=== PATIENT | male | born 1955 | race Asian ===

== ENCOUNTER 2023-10-14 02:41 | Inpatient (IN) | payer MEDICARE, OTHER ==
[2023-10-14] VITALS (8 sets, daily range): BP systolic 109–122; BP diastolic 48–75; TEMP 97.6–97.8; O2SAT 95–99
[~2023-10-14] VITALS: Ht 160 cm; Wt 74.8 kg
[2023-10-14] MEDS ORDERED: TDAP [DIPH/PERTUSSIS/TET] 0.5 ML VIAL IM ONE (03:07)
[2023-10-14] MEDS: TDAP [DIPH/PERTUSSIS/TET] 0.5 ML VIAL IM ONE (03:10)
[2023-10-14 03:36] LABS: BASOPHILS # (AUTO) 0.1 K/uL (0.0-0.2); BASOPHILS % (AUTO) 0.4 % (0.0-2.0); EOSINOPHILS # (AUTO) 0.4 K/uL (0.0-0.7); EOSINOPHILS % (AUTO) 2.6 % (0.0-6.0); HEMATOCRIT 42 % (39-51); HEMOGLOBIN 13.6 g/dL (13.5-17.5); LYMPHOCYTES # (AUTO) 2.4 K/uL (0.8-4.8); LYMPHOCYTES % (AUTO) 16.8 % (20.0-44.0); MEAN CORPUSCULAR HEMOGLOBIN 30 PG (26.0-33.0); MEAN CORPUSCULAR HGB CONC 33 g/dl (31.0-36.0); MEAN CORPUSCULAR VOLUME 93 fL (80-96); MONOCYTES # (AUTO) 0.9 K/uL (0.1-1.30); MONOCYTES % (AUTO) 6.6 % (2.0-12.0); NEUTROPHILS # (AUTO) 10.4 K/uL (1.8-8.9); NEUTROPHILS % (AUTO) 73.6 % (43.0-81.0); PLATELET COUNT (AUTO) 204 K/uL (150-450); RED BLOOD CELL COUNT(AUTO) 4.46 MIL/uL (4.5-6.0); WHITE BLOOD COUNT (AUTO) 14.1 K/uL (4.3-11.0)
[2023-10-14 04:01] LABS: ALBUMIN 3.4 g/dL (3.4-5.0); BILIRUBIN,TOTAL 0.2 mg/dL (0.2-1.0); CALCIUM, SERUM 8.7 mg/dL (8.5-10.1); CREATININE 1.2 mg/dL (0.6-1.3); POTASSIUM 4.6 mmol/L (3.5-5.1); TOTAL PROTEIN, SERUM 7.3 g/dL (6.4-8.2)
[2023-10-14] MEDS: LIDOCAINE /MPF 1% VIAL 5 ML VIAL IJ ONE (04:38)
[2023-10-14] MEDS ORDERED: LIDOCAINE 1% INJ 50 ML MDV IJ ONE (05:09)
[2023-10-14] MEDS ORDERED: LEVETIRACETAM (500MG) 500 MG/5 ML VIAL IV ONE (05:41)
[2023-10-14] MEDS: LEVETIRACETAM (500MG) 1,000 MG in IV NS 0.9% 90 ML IV SCH ×2 (05:48→19:18)
[2023-10-14] MEDS ORDERED: BLOOD SUGAR DIAGNOSTIC 1 EACH STRIP IN SCH ×2 (07:30→12:00)
[2023-10-14] MEDS: SENNOSIDES/DOCUSATE SODIUM 1 TAB TABLET PO SCH (10:00)
[2023-10-14] MEDS ORDERED: DEXTROSE 50%-WATER 50 ML DISP.SYRIN IV PRN (10:00)
[2023-10-14] MEDS: DOCUSATE SODIUM 100 MG CAPSULE PO SCH (10:00)
[2023-10-14] MEDS: PANTOPRAZOLE 40 MG VIAL IV SCH (10:00)
[2023-10-14] MEDS ORDERED: SENNOSIDES 8.6 MG TABLET ONE (10:45)
[2023-10-14] MEDS ORDERED: DOCUSATE SODIUM 100 MG CAPSULE PO ONE (10:46)
[2023-10-14] MEDS ORDERED: PANTOPRAZOLE 40 MG VIAL ONE (10:46)
[2023-10-14] MEDS ORDERED: PENT400T17 PO (10:55)
[2023-10-14] MEDS ORDERED: ATOR40TA PO (10:55)
[2023-10-14] MEDS ORDERED: SENN-261 PO (10:55)
[2023-10-14] MEDS ORDERED: GLIP5TAB13 PO (10:55)
[2023-10-14] MEDS ORDERED: METF-867 PO (10:55)
[2023-10-14] MEDS ORDERED: LEVO25TA9 PO (10:55)
[2023-10-14] MEDS ORDERED: ASPI-1420 PO (10:55)
[2023-10-14] MEDS ORDERED: LISI-768 PO (10:55)
[2023-10-14] MEDS ORDERED: RISP3TAB PO (10:55)
[2023-10-14] MEDS ORDERED: CALC500T52 PO (10:55)
[2023-10-14] MEDS ORDERED: MIRT-74 PO (10:55)
[2023-10-14] MEDS ORDERED: OMEP40CA21 PO (10:55)
[2023-10-14] MEDS ORDERED: SITA100T PO (10:55)
[2023-10-14] MEDS: BLOOD SUGAR DIAGNOSTIC 1 EACH STRIP IN SCH (12:00)
[2023-10-14] MEDS: INSULIN REGULAR, HUMAN 100 UNIT/ML 3 ML VIAL SQ PRN (22:53)
[2023-10-15] VITALS (28 sets, daily range): BP systolic 97–139; BP diastolic 52–115; TEMP 97.7–100.2; O2SAT 92–98
[2023-10-15 05:21] LABS: BASOPHILS # (AUTO) 0.1 K/uL (0.0-0.2); BASOPHILS % (AUTO) 0.7 % (0.0-2.0); EOSINOPHILS # (AUTO) 0.3 K/uL (0.0-0.7); EOSINOPHILS % (AUTO) 2.8 % (0.0-6.0); HEMATOCRIT 36 % (39-51); HEMOGLOBIN 12.4 g/dL (13.5-17.5); LYMPHOCYTES # (AUTO) 2.2 K/uL (0.8-4.8); LYMPHOCYTES % (AUTO) 23.7 % (20.0-44.0); MEAN CORPUSCULAR HEMOGLOBIN 31 PG (26.0-33.0); MEAN CORPUSCULAR HGB CONC 35 g/dl (31.0-36.0); MEAN CORPUSCULAR VOLUME 90 fL (80-96); MONOCYTES % (AUTO) 10.6 % (2.0-12.0); NEUTROPHILS # (AUTO) 5.9 K/uL (1.8-8.9); NEUTROPHILS % (AUTO) 62.2 % (43.0-81.0); PLATELET COUNT (AUTO) 203 K/uL (150-450); RED BLOOD CELL COUNT(AUTO) 3.99 MIL/uL (4.5-6.0); RED CELL DISTRIBUTION WIDTH 13.9 % (11.5-15.0); WHITE BLOOD COUNT (AUTO) 9.4 K/uL (4.3-11.0)
[2023-10-15 05:38] LABS: CALCIUM, SERUM 9.3 mg/dL (8.5-10.1); CREATININE 0.9 mg/dL (0.6-1.3); POTASSIUM 4.1 mmol/L (3.5-5.1)
[2023-10-15] MEDS: LEVETIRACETAM (500MG) 1,000 MG in IV NS 0.9% 90 ML IV SCH (08:26)
[2023-10-15] MEDS: PANTOPRAZOLE 40 MG TABLET.DR PO SCH (08:50)
[2023-10-15] MEDS: LEVOTHYROXINE SODIUM 25 MCG TABLET PO SCH (10:57)
[2023-10-15] MEDS: RISPERIDONE 1 MG TAB.RAPDIS PO SCH (16:29)
[2023-10-15] MEDS: CALCIUM CARBONATE (1250) 500 MG TABLET PO SCH (16:29)
[2023-10-15] MEDS: ACETAMINOPHEN 325 MG TABLET PO PRN (17:49)
[2023-10-15] MEDS: IV NS 0.9% 250 ML IV PRN (20:03)
[2023-10-15] MEDS: MIRTAZAPINE 15 MG TABLET PO SCH (22:20)
[2023-10-16] VITALS: BP 110/72; TEMP 98.7; O2SAT 99
[2023-10-16 04:00] VITALS: BP 115/75; TEMP 98.1; O2SAT 99
[2023-10-16 07:11] LABS: BASOPHILS # (AUTO) 0.1 K/uL (0.0-0.2); BASOPHILS % (AUTO) 0.7 % (0.0-2.0); EOSINOPHILS # (AUTO) 0.2 K/uL (0.0-0.7); EOSINOPHILS % (AUTO) 1.8 % (0.0-6.0); HEMATOCRIT 36 % (39-51); HEMOGLOBIN 12.3 g/dL (13.5-17.5); LYMPHOCYTES # (AUTO) 1.9 K/uL (0.8-4.8); LYMPHOCYTES % (AUTO) 18.9 % (20.0-44.0); MEAN CORPUSCULAR HEMOGLOBIN 30 PG (26.0-33.0); MEAN CORPUSCULAR HGB CONC 34 g/dl (31.0-36.0); MEAN CORPUSCULAR VOLUME 89 fL (80-96); MONOCYTES # (AUTO) 1.1 K/uL (0.1-1.30); MONOCYTES % (AUTO) 11.5 % (2.0-12.0); NEUTROPHILS # (AUTO) 6.6 K/uL (1.8-8.9); NEUTROPHILS % (AUTO) 67.1 % (43.0-81.0); PLATELET COUNT (AUTO) 197 K/uL (150-450); RED BLOOD CELL COUNT(AUTO) 4.04 MIL/uL (4.5-6.0); RED CELL DISTRIBUTION WIDTH 13.7 % (11.5-15.0); WHITE BLOOD COUNT (AUTO) 9.9 K/uL (4.3-11.0)
[2023-10-16 07:15] LABS: CALCIUM, SERUM 8.7 mg/dL (8.5-10.1); CREATININE 0.8 mg/dL (0.6-1.3); POTASSIUM 4.2 mmol/L (3.5-5.1)
[2023-10-16 08:00] VITALS: BP 118/86; TEMP 99.7; O2SAT 100
[2023-10-16] MEDS: LISINOPRIL (5MG) 5 MG TABLET PO SCH (09:04)
[2023-10-16] MEDS: ATORVASTATIN 40 MG TABLET PO SCH (09:05)
[2023-10-16] MEDS: LINAGLIPTIN 5 MG TABLET PO SCH (09:06)
[2023-10-16] MEDS: glipiZIDE 5 MG TABLET PO SCH (09:07)
[2023-10-16] MEDS: SENNOSIDES 8.6 MG TABLET PO SCH (09:25)
[2023-10-16 12:00] VITALS: BP 119/73; TEMP 99.3; O2SAT 100
[2023-10-16 16:00] VITALS: BP 119/77; TEMP 98.9; O2SAT 100
[2023-10-16 20:00] VITALS: BP 115/75; TEMP 98.7; O2SAT 98
[2023-10-17 04:00] VITALS: BP 108/70; TEMP 99; O2SAT 99
[2023-10-17 08:00] VITALS: BP 122/71; TEMP 98.2; O2SAT 99
[2023-10-17 08:11] LABS: BASOPHILS # (AUTO) 0.1 K/uL (0.0-0.2); BASOPHILS % (AUTO) 0.8 % (0.0-2.0); EOSINOPHILS # (AUTO) 0.2 K/uL (0.0-0.7); EOSINOPHILS % (AUTO) 2.5 % (0.0-6.0); HEMATOCRIT 35 % (39-51); HEMOGLOBIN 11.9 g/dL (13.5-17.5); LYMPHOCYTES # (AUTO) 1.9 K/uL (0.8-4.8); LYMPHOCYTES % (AUTO) 19.6 % (20.0-44.0); MEAN CORPUSCULAR HEMOGLOBIN 30 PG (26.0-33.0); MEAN CORPUSCULAR HGB CONC 34 g/dl (31.0-36.0); MEAN CORPUSCULAR VOLUME 90 fL (80-96); MONOCYTES # (AUTO) 1.1 K/uL (0.1-1.30); MONOCYTES % (AUTO) 11.7 % (2.0-12.0); NEUTROPHILS # (AUTO) 6.4 K/uL (1.8-8.9); NEUTROPHILS % (AUTO) 65.4 % (43.0-81.0); PLATELET COUNT (AUTO) 204 K/uL (150-450); RED BLOOD CELL COUNT(AUTO) 3.92 MIL/uL (4.5-6.0); RED CELL DISTRIBUTION WIDTH 13.8 % (11.5-15.0); WHITE BLOOD COUNT (AUTO) 9.8 K/uL (4.3-11.0)
[2023-10-17 16:00] VITALS: BP 117/73; TEMP 98.8; O2SAT 99
[2023-10-18 03:00] VITALS: BP 110/69; TEMP 99.1; O2SAT 99
[2023-10-18 07:02] LABS: BASOPHILS # (AUTO) 0.1 K/uL (0.0-0.2); BASOPHILS % (AUTO) 0.9 % (0.0-2.0); EOSINOPHILS # (AUTO) 0.4 K/uL (0.0-0.7); EOSINOPHILS % (AUTO) 4.9 % (0.0-6.0); HEMATOCRIT 35 % (39-51); HEMOGLOBIN 11.7 g/dL (13.5-17.5); LYMPHOCYTES % (AUTO) 22.5 % (20.0-44.0); MEAN CORPUSCULAR HEMOGLOBIN 30 PG (26.0-33.0); MEAN CORPUSCULAR HGB CONC 34 g/dl (31.0-36.0); MEAN CORPUSCULAR VOLUME 90 fL (80-96); MONOCYTES # (AUTO) 0.9 K/uL (0.1-1.30); MONOCYTES % (AUTO) 9.9 % (2.0-12.0); NEUTROPHILS # (AUTO) 5.6 K/uL (1.8-8.9); NEUTROPHILS % (AUTO) 61.8 % (43.0-81.0); PLATELET COUNT (AUTO) 244 K/uL (150-450); RED BLOOD CELL COUNT(AUTO) 3.92 MIL/uL (4.5-6.0); RED CELL DISTRIBUTION WIDTH 13.5 % (11.5-15.0)
[2023-10-18 08:00] VITALS: BP_SYST 115; BP_SYST 121; BP_DIAS 69; BP_DIAS 75; TEMP 97.7; TEMP 98.7; O2SAT 98
[2023-10-18 08:50] VITALS: BP 126/69
[2023-10-18] MEDS: LEVETIRACETAM (250 MG) 250 MG TABLET PO SCH (08:50)
[2023-10-18] MEDS ORDERED: LEVE1000 PO (11:51)
== END 2023-10-18 14:47 | DRG 87 ==
LOC: ER 02:52 → TRANSITION 05:47 → ICU 13:00 → TELE1 10-15 15:44 → MEDSG1 10-16 11:25
PROVIDERS: ATTEND Nurse Practitioner Acute Care
DX: S06.5X0A Traumatic subdural hemorrhage without loss of consciousness, initial encounter (principal); W01.0XXA Fall on same level from slipping, tripping and stumbling without subsequent striking against object, initial encounter; D72.829 Elevated white blood cell count, unspecified; E11.9 Type 2 diabetes mellitus without complications; I10 Essential (primary) hypertension; F32.A Depression, unspecified; S00.12XA Contusion of left eyelid and periocular area, initial encounter; Y93.9 Activity, unspecified; Y92.230 Patient room in hospital as the place of occurrence of the external cause; S06.6X0A Traumatic subarachnoid hemorrhage without loss of consciousness, initial encounter; R40.2362 Coma scale, best motor response, obeys commands, at arrival to emergency department; R40.2142 Coma scale, eyes open, spontaneous, at arrival to emergency department; R40.2252 Coma scale, best verbal response, oriented, at arrival to emergency department; I73.9 Peripheral vascular disease, unspecified
CPT/HCPCS: 36415; 70450-TC; 72125-TC; 80048-TC; 80053-TC; 82330; 82962-TC; 83735-TC; 83880; 84484-TC; 85025-TC; 87081-TC; 90715; 92507-TC; 92521; 92526; 92611-TC; 97110-TC; 97112-TC; 97116-TC; A4223; G0378; J1815; J1953; J2470; J3490; J7030; J7050